=== PATIENT | male | born 1965 | race Caucasian/White ===

== ENCOUNTER 2021-03-29 06:58 | Emergency (ER) | payer OTHER ==
[2021-03-29] MEDS ORDERED: HYDROCODON-ACE1 EAC2 PO (08:16)
== END 2021-03-29 08:28 | disposition home or self-care (01) ==
LOC: FER 06:58
DX: S67.22XA Crushing injury of left hand, initial encounter (principal); S60.222A Contusion of left hand, initial encounter; F17.210 Nicotine dependence, cigarettes, uncomplicated; W23.1XXA Caught, crushed, jammed, or pinched between stationary objects, initial encounter; Y92.69 Other specified industrial and construction area as the place of occurrence of the external cause; Y99.0 Civilian activity done for income or pay
CPT/HCPCS: 73130